=== PATIENT | male | born 1940 | race Hispanic/Latino ===

== ENCOUNTER 2017-12-03 21:18 | Emergency (ER) | payer MEDICARE, BC ==
[2017-12-03 21:18] VITALS: BMI 31.5
--- NOTE | 2017-12-03 21:49 | ED PDOC ---
Arrival/HPI - General Chief Complaint: Male Genitourinary Time Seen by Provider: 12/03/17 21:45 Historian: Patient - History of Present Illness Narrative History of Present Illness (Text): 12/03/17 21:50 A 77 year old male, whose past medical history includes asthma, thryoid problem , and hypertension, who is accompanied by , presents to the emergency department complaining of difficulty urinating. Patient is deaf/[id number] , history is mostly dictated by his . According to , patient reports s/ p left shoulder surgery, he was capable of urinating. However while at home he has only been able to urinate a few drops. Patient denies abdominal pain or any other complaints at this time. PMD: Dr. Hernandez Past Medical History - Provider Review Nursing Documentation Reviewed: Yes - Infectious Disease Hx of Infectious Diseases: None - Cardiac Hx Hypertension: Yes Hx Pacemaker: No - Pulmonary Hx Respiratory Disorders: Yes Hx Asthma: Yes - Neurological Hx Paralysis: No - HEENT Hx HEENT Disorder: Yes Hx Deafness: Yes - Renal Hx Renal Disorder: No - Endocrine/Metabolic Hx Endocrine Disorders: Yes Hx Hypothyroidism: Yes - Hematological/Oncological Hx Blood Transfusions: No - Integumentary Hx Dermatological Disorder: No - Musculoskeletal/Rheumatological Hx Musculoskeletal Disorders: Yes - Gastrointestinal Hx Gastrointestinal Disorders: No - Genitourinary/Gynecological Hx Genitourinary Disorders: No - Psychiatric Hx Emotional Abuse: No Hx Physical Abuse: No Hx Substance Use: No - Surgical History Hx Orthopedic Surgery: Yes (left shoulder rotator cuff repair 12/03/17) - Anesthesia Hx Anesthesia: Yes Hx Anesthesia Reactions: No Hx Malignant Hyperthermia: No - Suicidal Assessment Feels Threatened In Home Enviroment: No Family/Social History - Physician Review Nursing Documentation Reviewed: Yes Family/Social History: No Known Family HX Smoking Status: Former Smoker Hx Alcohol Use: Yes (SOCIAL USE ONLY) Hx Substance Use: No Hx Substance Use Treatment: No Allergies/Home Meds Allergies/Adverse Reactions: Allergies aspirin Allergy (Verified 12/03/17 21:32) ANAPHYLAXIS Penicillins Allergy (Verified 12/03/17 21:32) RASH Home Medications: Home Meds Medication Instructions Recorded Confirmed Cetirizine HCl [Allergy Relief] 10 mg PO DAILY 04/27/16 12/03/17 Cholecalciferol (Vitamin D3) 1,000 iu PO DAILY 04/27/16 12/03/17 [Vitamin D3] Levothyroxine [Synthroid] 125 mcg PO DAILY 04/27/16 12/03/17 Multivitamin [One Daily 1 tab PO DAILY 04/27/16 12/03/17 Multivitamin] Conway-3 Fatty Acids [Fish Oil] 1 cap PO DAILY 04/27/16 12/03/17 Ranitidine HCl [Acid Relief Captain] 150 mg PO BID 04/27/16 12/03/17 Cyanocobalamin [Vitamin B12 1000 1,000 mcg PO DAILY 11/19/17 12/03/17 mcg Tab] Montelukast [Singulair] 10 mg PO DAILY 11/19/17 12/03/17 Olmesartan/Hydrochlorothiazide 1 tab PO DAILY 12/03/17 12/03/17 [Benicar Hct 40-25 mg Tablet] Review of Systems - Physician Review All systems were reviewed & negative as marked: Yes - Review of Systems Constitutional: absent: Fevers, Night Sweats Respiratory: absent: SOB Cardiovascular: absent: Chest Pain Gastrointestinal: absent: Abdominal Pain, Diarrhea, Nausea, Vomiting Genitourinary Male: Urinary Output Changes (difficulty urinating) Physical Exam Vital Signs Reviewed: Yes Vital Signs Temp Pulse Resp BP Pulse Ox 12/03/17 23:08 98.1 F 91 H 18 107/60 99 12/03/17 21:24 100.1 F H 106 H 19 103/69 95 Temperature: Febrile Blood Pressure: Normal Pulse: Regular Respiratory Rate: Normal Appearance: Positive for: Well-Appearing Pain Distress: None Mental Status: Positive for: Alert and Oriented X 3 - Systems Exam Head: Present: Atraumatic, Normocephalic Pupils: Present: PERRL Extroacular Muscles: Present: EOMI Conjunctiva: Present: Normal Mouth: Present: Moist Mucous Membranes Neck: Present: Normal Range of Motion Respiratory/Chest: Present: Clear to Auscultation, Good Air Exchange. No: Respiratory Distress, Accessory Muscle Use Cardiovascular: Present: Regular Rate and Rhythm, Normal S1, S2. No: Murmurs Abdomen: No: Tenderness, Distention, Peritoneal Signs Back: Present: Normal Inspection Upper Extremity: Present: Normal Inspection, Other (left shoulder sling s/p surgery). No: Cyanosis, Edema Lower Extremity: Present: Normal Inspection. No: Edema Neurological: Present: GCS=15, CN II-XII Intact, Speech Normal Skin: Present: Warm, Dry, Normal Color. No: Rashes Psychiatric: Present: Alert, Oriented x 3, Normal Insight, Normal Concentration Medical Decision Making ED Course and Treatment: 12/03/17 21:55 Impression: 77 year old male with difficulty urinating. Plan: -- Reassess and disposition Medina catheter placed without difficulty by RN Progress Notes: 12/03/17 22:42 Patient will be discharged for urinary retention. Nurse drained 600 CCs of urine , and afterwards patient stated feeling much better. Patient has been provided with a leg bag and will follow-up with urologist accordingly. - Scribe Statement The provider has reviewed the documentation as recorded by the Scribe Hesham Lugo Provider Scribe Provider Scribe Attestation: All medical record entries made by the Scribe were at my direction and personally dictated by me. I have reviewed the chart and agree that the record accurately reflects my personal performance of the history, physical exam, medical decision making, and the department course for this patient. I have also personally directed, reviewed, and agree with the discharge instructions and disposition. Disposition/Present on Arrival - Present on Arrival Any Indicators Present on Arrival: No History of DVT/PE: No History of Uncontrolled Diabetes: No Urinary Catheter: No History of Decub. Ulcer: No History Surgical Site Infection Following: None - Disposition Have Diagnosis and Disposition been Completed?: Yes Diagnosis: Urinary retention Disposition: HOME/ ROUTINE Disposition Time: 23:08 Condition: GOOD Discharge Instructions (ExitCare): Urinary Retention (DC) Additional Instructions: BONITA GAXIOLA, thank you for letting us take care of you today. Your provider was Kandace Coulter MD and you were treated for PROBLEMS URINATING. The emergency medical care you received today was directed at your acute symptoms. If you were prescribed any medication, please fill it and take as directed. It may take several days for your symptoms to resolve. Return to the Emergency Department if your symptoms worsen, do not improve, or if you have any other problems. Please follow up with UROLOGY, Dr. Sheikh as soon as possible. Please contact your doctor or call one of the physicians/clinics you have been referred to that are listed on the Patient Visit Information form that is included in your discharge packet. Bring any paperwork you were given at discharge with you along with any medications you are taking to your follow up visit. Our treatment cannot replace ongoing medical care by a primary care provider outside of the emergency department. Thank you for allowing the [facility] team to be part of your care today. If you had an X-Ray or CT scan: A Radiologist will review the ED reading if any change in treatment is needed we will contact you. If you had a blood, urine, or wound culture: It will take several days for the results, if any change in treatment is needed we will contact you. If you had an STI test: It will take 48 hours for the results. Please call after 1 week if you have not heard back. Referrals: Eusebio Hernandez MD [Primary Care Provider] - Follow up with primary Davin Sheikh MD [Staff Provider] - Follow up with primary Forms: [employer] ([place])
[2017-12-03 23:10] VITALS: BP 107/60; PULSE 91; RESP 18; TEMP 98.1; O2SAT 99
== END 2017-12-03 23:08 | disposition home or self-care (01) ==
LOC: ED 21:18
DX: R33.9 Retention of urine, unspecified (principal); I10 Essential (primary) hypertension; Z87.891 Personal history of nicotine dependence; E03.9 Hypothyroidism, unspecified

== ENCOUNTER → 2017-12-03 | Day surgery (SDC) | payer MEDICARE, BC ==
[~2017-12-03] MED LIST: Bupivacaine 0.5% Inj(30mL) ONE; Glycopyrrolate 0.2 mg/ml (2ml vial) ONE; HYDROmorphone 0.5 mg/0.5 ml ISec IVP PRN; Lactated Ringer's 1,000 ML IV SCH; Lidocaine 1% w Epi 1:100,000 Inj ONE; Midazolam 2 MG/2 ML VIAL ONE; Neostigmine Methylsulfate 3mg/3ml Syringe IV ONE; Oxycodone/Acetaminophen 5/325 mg Tab PO PRN; Propofol 10 mg/ml Inj (20 ML) ONE; Rocuronium 10 mg/ml (5 ml) ONE
--- NOTE | 2017-12-03 11:30 | PCM.SURG1 ---
Surgeon's Initial Post Op Note - Surgeon's Notes Surgeon: Kory Helton MD Yield Clerk: Farnaz Hankins PA-C, Jhonny Bui PA-C Type of Anesthesia: General Endo Anesthesia Administered By: Dr. Pichardo Pre-Operative Diagnosis: Left rotator cuff tear Operative Findings: see full note Post-Operative Diagnosis: Left rotator cuff tear. Labral tear Operation Performed: Left shoulder arthroscopic rotator cuff repair, labral repair, subacromial decompression, debridement Specimen/Specimens Removed: none Estimated Blood Loss: EBL {In ML}: 5 Blood Products Given: N/A Drains Used: No Drains Post-Op Condition: Fair Date of Surgery/Procedure: 12/03/17 Time of Surgery/Procedure: 11:30
[2017-12-03 12:37] VITALS: RESP 18; TEMP 98.5; O2SAT 92
[2017-12-03 12:49] VITALS: BMI 32.8
[2017-12-03 13:30] VITALS: BP 135/79; PULSE 95
--- NOTE | 2017-12-03 13:35 | OP ---
PROCEDURE DATE: 12/03/2017 PREOPERATIVE DIAGNOSIS: Left shoulder chronic rotator cuff tear. POSTOPERATIVE DIAGNOSES: Left shoulder chronic rotator cuff tear and anterior labral tear. PROCEDURE: Left shoulder arthroscopy with arthroscopic cuff repair, arthroscopic labral repair and subacromial decompression. SURGEON: Dirk Helton MD MAINTENANCE PIPEFITTER: Dr. Helton was assisted by Betina Fernandez, the physician certified physician's assistant as well as Jamee Bui, the physician certified physician's assistant. Both physician assistants were scrubbed and present throughout the entire case, and assisted in patient positioning, manipulation of the extremity and holding the arthroscope during the repairs. ANESTHESIA: General. COMPLICATIONS: None. ESTIMATED BLOOD LOSS: 5 mL. INDICATIONS FOR PROCEDURE: This is a 77-year-old gentleman who presented with complaints of longstanding left shoulder pain. Clinical examination was consistent with pain through the impingement arc, positive Hawkin's sign, some breakaway weakness, resisted forward flexion and abduction. Positive Speeds test. MRI examination was consistent with what looked like a chronic retractor tear of the supraspinatus. After a period of failed non-surgical management, recommendations were for left shoulder arthroscopy with possible superior capsular reconstruction versus rotator cuff repair. The risks, benefits, and alternatives of the procedure were discussed with the patient and informed consent was obtained. OPERATIVE PROCEDURE: After the surgical site was signed and verified in the preoperative holding area, the patient was taken to the operating room and placed supine on the operating room table. After administration of general anesthesia, the patient received 900 mg clindamycin IV. The patient was positioned in the lateral decubitus position with the left shoulder up towards the ceiling. Care was taken to make sure all bony prominences and nerves were well padded and protected. Axillary roll was placed in the right axilla and the left upper extremity was prepped and draped in the usual sterile fashion. The left upper extremity was placed in the arthroscopic arm castro with 10 pounds of traction. The bony landmarks were identified about the left shoulder and all portal sites were injected with a total of 10 mL of 1% lidocaine with epinephrine. A posterior arthroscopy portal was established and the arthroscope was inserted into the glenohumeral joint. The chondral surface of the glenoid was noted to have some grade I to grade II wear, particularly at the inferior portion of the glenoid. Chondral surface of the humeral head was noted to have some grade I wear. Under direct arthroscopic visualization, the anterior interval was identified and anterior portal was established. Anterior labrum was probed and was noted to be torn roughly from the biceps anchor to roughly the 3.30, almost 4 o'clock position. At this point, the freed margin of the labrum was debrided using a full radius shaver and the labrum was repaired by passing 3 labral tapes around the torn labral tissue and then inserting them into 3 knotless labral glenoid anchors. The anchors were impacted into place making sure to tension the tissue appropriately and once this was done, the anterior labrum was again probed and was noted to be stable and well fixed. Biceps tendon appeared to be in intertubercular grove. Next, the subscapularis tendon was identified and no obvious tearing was appreciated. The supraspinatus was noted to be fully torn and retracted to the mid portion of the humeral head. The articular side of the tear was debrided using a full radius shaver. No loose bodies were appreciated intraarticularly. The inferior and posterior labrum appeared to be intact though was noted to have some mild fraying, but was otherwise intact. At this point, arthroscope was inserted into the subacromial space through the posterior portal. A lateral portal was established and a bursectomy was performed and excellent visualization of the undersurface of the acromion as well as the rotator cuff. Using the shaver in a bur-like fashion, acromioplasty was performed. At this point, tear was evaluated and using a tissue grasper, by grasping on the tissue, the tear could be mobilized to the footprint. A decision was made not to proceed with the superior capsular reconstruction, but rather do a primary repair. At this point, the footprint and the tear was debrided and the tear was fixed by first inserting 2 medial anchors to the footprint and passing the sutures in a mattress-like fashion. The sutures were tied and then once this was done, six limbs of the suture were then inserted into a knotless anchor and this was impacted from the lateral footprint of the rotator cuff, again making sure to maintain proper tension. Once this was done, full coverage was achieved and our repair was probed and was noted to be stable. Satisfied, all the instruments were removed and all our portals were closed using interrupted 2-0 Vicryl suture and 3-0 nylon. Sterile dressing was applied and abduction pillow sling was placed. The patient was awakened from the procedure and taken to the recovery room in stable condition. Dirk Helton MD
== END | disposition home or self-care (01) ==
LOC: SDS 05:54
PROVIDERS: ATTEND Orthopaedic Surgery
DX: M75.102 Unspecified rotator cuff tear or rupture of left shoulder, not specified as traumatic (principal)